=== PATIENT | male | born 1960 | race Caucasian/White ===

== ENCOUNTER 2023-02-03 01:26 | Day surgery (SDC) | payer OTHER, SELFPAY ==
[2023-01-21 14:28] VITALS: BMI 30.4
[2023-02-03 06:13] VITALS: BP 128/82; PULSE 80; RESP 18; TEMP 36; O2SAT 98
[2023-02-03] MEDS: LACTATED RINGERS 1,000 ML 150 ML IV CONT (06:15)
--- NOTE | 2023-02-03 07:04 | WPDANESEPPF ---
Anes - Initial Pre Proc Eval Procedure: Operation Date: 02/03/23 07:30 Proposed Procedures p Screening Colonoscopy - Sam Soto MD Date/Time: 02/03/23 07:04 Surgeon: Sam Soto MD Pre Op Diagnosis: family hx colon ca, neoplasm screening Patient Data Age: 62 Gender: M Height: 1.85 m Weight: 105.7 kg Last Vital Signs Temp 36.0 C L 02/03/23 06:13 Pulse 80 02/03/23 06:13 Resp 18 02/03/23 06:13 BP 128/82 02/03/23 06:13 Pulse Ox 98 02/03/23 06:13 O2 Del Method Room Air 02/03/23 06:13 Allergies Allergy/AdvReac Type Severity Reaction Status Date / Time acetaminophen AdvReac Intermediate Irritable, Verified 02/03/23 06:11 [From Sudafed PE Cold and itching, Cough] shakiness. dextromethorphan AdvReac Intermediate Irritable, Verified 02/03/23 06:11 [From Sudafed PE Cold and itching, Cough] shakiness. guaifenesin AdvReac Intermediate Irritable, Verified 02/03/23 06:11 [From Sudafed PE Cold and itching, Cough] shakiness. phenylephrine AdvReac Intermediate Irritable, Verified 02/03/23 06:11 [From Sudafed PE Cold and itching, Cough] shakiness. Home Medications Medication Instructions Recorded Confirmed Type esomeprazole magnesium 20 mg 20 mg PO DAILY 06/11/19 02/03/23 History capsule,delayed release [id number]-[id number]-vitC 1 cap PO DAILY 06/11/19 02/03/23 History capsule (Glucosamine Complex-MSM capsule) cholecalciferol (vitamin D3) 125 125 mcg PO DAILY 07/05/19 02/03/23 History mcg (5,000 unit) tablet (Vitamin D3) coenzyme Q10 10 mg capsule (Co 10 mg PO ONCE 07/05/19 02/03/23 History Q-10) calcium carbonate 334 mg-magnesium 1 tablet PO DAILY 01/21/23 02/03/23 History oxide 134 mg-zinc oxide 5 mg tablet sodium hyaluronate 20 mg capsule 100 mg PO DAILY 01/21/23 02/03/23 History indapamide 2.5 mg tablet 2.5 mg PO QAM #90 tabs 01/27/23 02/03/23 Rx simvastatin 40 mg tablet 40 mg PO QPM 02/03/23 02/03/23 History Patient hx anesthesia problems: none Family hx anesthesia problems: none Results Review: All pre-operative results and documents have been reviewed as part of the pre-operative evaluation. [facility] Past Medical History Medical History History of esophageal stricture Hypercholesteremia Hyperlipidemia Hypertension Lower esophageal sphincter, relaxation Normal colonoscopy Normal endoscopy Papilloma of larynx Recurrent boils Surgical History Surgical History H/O removal of cyst [place] teeth extracted Family History Family History Father Hypertension Mother Hypertension Social History Social History Smoking status: Never smoker Second hand tobacco smoke exposure: No Alcohol intake: never Substance use: never Substance use type: does not use Current Housing: Decline to Answer Concerned About Future Housing: Decline to Answer Difficulty Paying Gas/Electric Bills: Decline to Answer Difficulty Paying for Meds: Decline to Answer Currently Unemployed: Decline to Answer Education: Decline to Answer Difficulty w/ Childcare or Family Care: Decline to Answer Living arrangements: with family Occupation/Education: occupation Gender identity (if verbalized by the patient): Male Sexual Orientation (if Verbalized by the Patient): Straight or Heterosexual Spiritual care concerns: No Agree to blood products: Yes Anes - Eval Final PreProcedure Day of Procedure 02/03/23 07:04 Patient weight: overweight Heart: regular rate and rhythm Lungs: clear to auscultation Airway: Mallampati scale class II Neurological: alert and oriented Last oral intake: >/= 8 hours ASA classification: II Emergent: no Anesthetic plan: proceed Anesthesia type and monitoring: general G
--- NOTE | 2023-02-03 07:27 | PM.HPGS ---
History of Present Illness History of Present Illness Consent: Risks, benefits, and alternatives have been discussed and questions answered. Patient agrees to proceed with procedure. Chief complaint: family hx colon ca, neoplasm screening Narrative: Mirza Shanks is a 62 year old male Presents for screening colonoscopy. Patient's current weight appetite and bowel movements are normal. Patient denies abdominal pain. He has had no bleeding. Family history is significant his brother had colon cancer, his father had colon polyps. Patient presents today for neoplasia screening. Previous exam 2018 was unremarkable. Review of Systems Review of Systems: Review of systems noncontributory. [facility] Past Medical History Medical History History of esophageal stricture Hypercholesteremia Hyperlipidemia Hypertension Lower esophageal sphincter, relaxation Normal colonoscopy Normal endoscopy Papilloma of larynx Recurrent boils Surgical History Surgical History H/O removal of cyst [place] teeth extracted Family History Family History Father Hypertension Mother Hypertension Social History Social History Smoking status: Never smoker Second hand tobacco smoke exposure: No Alcohol intake: never Substance use: never Substance use type: does not use Current Housing: Decline to Answer Concerned About Future Housing: Decline to Answer Difficulty Paying Gas/Electric Bills: Decline to Answer Difficulty Paying for Meds: Decline to Answer Currently Unemployed: Decline to Answer Education: Decline to Answer Difficulty w/ Childcare or Family Care: Decline to Answer Living arrangements: with family Occupation/Education: occupation Gender identity (if verbalized by the patient): Male Sexual Orientation (if Verbalized by the Patient): Straight or Heterosexual Spiritual care concerns: No Agree to blood products: Yes Meds Home Medications and Allergies Home Medications Medication Instructions Recorded Confirmed Type esomeprazole magnesium 20 mg 20 mg PO DAILY 06/11/19 02/03/23 History capsule,delayed release qfdwjoqjmwa-fnn-gisysecjy-vitC 1 cap PO DAILY 06/11/19 02/03/23 History capsule (Glucosamine Complex-MSM capsule) cholecalciferol (vitamin D3) 125 125 mcg PO DAILY 07/05/19 02/03/23 History mcg (5,000 unit) tablet (Vitamin D3) coenzyme Q10 10 mg capsule (Co 10 mg PO ONCE 07/05/19 02/03/23 History Q-10) calcium carbonate 334 mg-magnesium 1 tablet PO DAILY 01/21/23 02/03/23 History oxide 134 mg-zinc oxide 5 mg tablet sodium hyaluronate 20 mg capsule 100 mg PO DAILY 01/21/23 02/03/23 History indapamide 2.5 mg tablet 2.5 mg PO QAM #90 tabs 01/27/23 02/03/23 Rx simvastatin 40 mg tablet 40 mg PO QPM 02/03/23 02/03/23 History Allergies Allergy/AdvReac Type Severity Reaction Status Date / Time acetaminophen AdvReac Intermediate Irritable, Verified 02/03/23 06:11 [From Sudafed PE Cold and itching, Cough] shakiness. dextromethorphan AdvReac Intermediate Irritable, Verified 02/03/23 06:11 [From Sudafed PE Cold and itching, Cough] shakiness. guaifenesin AdvReac Intermediate Irritable, Verified 02/03/23 06:11 [From Sudafed PE Cold and itching, Cough] shakiness. phenylephrine AdvReac Intermediate Irritable, Verified 02/03/23 06:11 [From Sudafed PE Cold and itching, Cough] shakiness. Vital Signs Vital Signs - 24 hr 02/03/23 06:13 Temperature 96.8 F L Pulse Rate 80 Respiratory Rate 18 Blood Pressure 128/82 Pulse Oximetry 98 Oxygen Delivery Room Air Exam Narrative: Physical exam reveals patient to be alert. Vital signs stable. HEENT exam is unremarkable. Patient is anicteric. Lungs are clear to ausculta
[2023-02-03 07:47] VITALS: BP 117/67; PULSE 71; RESP 15; O2SAT 97
[2023-02-03 07:57] VITALS: BP 121/80; PULSE 69; RESP 24; O2SAT 97
[2023-02-03 08:07] VITALS: BP 124/78; PULSE 66; RESP 18; O2SAT 97
== END 2023-02-03 08:16 | disposition home or self-care (01) ==
PROVIDERS: PCP Family Medicine; Visit Provider Internal Medicine Gastroenterology
PROC: 0DJD8ZZ Inspection of Lower Intestinal Tract, Via Natural or Artificial Opening Endoscopic (ICD-10-PCS; CPT 45378; principal; 2023-02-03 07:30)
DX: Z12.11 Encounter for screening for malignant neoplasm of colon (principal); K64.8 Other hemorrhoids; Z80.0 Family history of malignant neoplasm of digestive organs; Z83.71 Family history of colonic polyps; I10 Essential (primary) hypertension; E78.00 Pure hypercholesterolemia, unspecified
CPT/HCPCS: 45378; J2704; J7120

== ENCOUNTER 2023-11-11 14:28 | Emergency (ER) | payer OTHER, SELFPAY ==
[2023-11-11 14:42] VITALS: BP 152/80; PULSE 84; RESP 18; TEMP 36.6; O2SAT 97
--- NOTE | 2023-11-11 14:45 | ED.URI ---
HPI - URI/Sore Throat General Chief Complaint: Upper Respiratory Infection Stated Complaint: Cough Time Seen by Provider: 11/11/23 14:53 Source: patient and RN notes reviewed Mode of arrival: ambulatory Limitations: no limitations History of Present Illness HPI Narrative: 63-year-old male presents with concern for 2 week history of nasal congestion, drainage, cough. Reports he has taken [id number] medications without relief of cough. Reports cough keeps awake at night MD elicited complaint: cough and nasal congestion Related Data Home Medications Medication Instructions Recorded Confirmed esomeprazole magnesium 20 mg 20 mg PO DAILY 06/11/19 11/11/23 capsule,delayed release xnujvqyafrq-pje-taatjjhmg-vitC 1 cap PO DAILY 06/11/19 11/11/23 capsule (Glucosamine Complex-MSM capsule) cholecalciferol (vitamin D3) 125 125 mcg PO DAILY 07/05/19 11/11/23 mcg (5,000 unit) tablet (Vitamin D3) coenzyme Q10 10 mg capsule (Co 10 mg PO ONCE 07/05/19 11/11/23 Q-10) calcium carbonate 334 mg-magnesium 1 tablet PO DAILY 01/21/23 11/11/23 oxide 134 mg-zinc oxide 5 mg tablet sodium hyaluronate 20 mg capsule 100 mg PO DAILY 01/21/23 11/11/23 simvastatin 40 mg tablet 40 mg PO QPM 02/03/23 11/11/23 Allergies Allergy/AdvReac Type Severity Reaction Status Date / Time phenylephrine AdvReac Intermediate Irritable, Verified 11/11/23 14:35 [From Sudafed PE Cold and itching, Cough] shakiness. pseudoephedrine AdvReac Itching Verified 11/11/23 15:03 [From Sudafed] Review of Systems Review of Systems: CONSTITUTIONAL: Denies malaise, chills, sweats, or fever. EYES: Denies visual changes, redness, or discharge. ENT: Reports rhinorrhea, congestio CARDIOVASCULAR: Denies chest pain, palpitations, or edema. RESPIRATORY: Reports cough. Denies dyspnea. GASTROINTESTINAL: Denies abdominal pain, nausea, vomiting, diarrhea SKIN: Denies rash or itching. MUSCULOSKELETAL: Denies myalgia. NEUROLOGIC: Denies headache. All systems reviewed & are unremarkable except as noted in HPI and below PMFSH Past Medical History Medical History History of esophageal stricture Hypercholesteremia Hyperlipidemia Hypertension Lower esophageal sphincter, relaxation Normal colonoscopy Normal endoscopy Papilloma of larynx Recurrent boils Surgical History Surgical History H/O removal of cyst [place] teeth extracted Family History Family History Father Hypertension Mother Hypertension Social History Social History Smoking status: Never smoker Second hand tobacco smoke exposure: No Alcohol intake: never Substance use: never Substance use type: does not use Current Housing: Decline to Answer Concerned About Future Housing: Decline to Answer Difficulty Paying Gas/Electric Bills: Decline to Answer Difficulty Paying for Meds: Decline to Answer Currently Unemployed: Decline to Answer Education: Decline to Answer Difficulty w/ Childcare or Family Care: Decline to Answer Living arrangements: with family Occupation/Education: occupation Gender identity (if verbalized by the patient): Male Sexual Orientation (if Verbalized by the Patient): Straight or Heterosexual Spiritual care concerns: No Agree to blood products: Yes Comments At time of signature, agree with nursing past medical, surgical, social and family history. There is no relevant family history pertinent to the presenting complaint Exam Narrative: GENERAL: Nontoxic-appearing, well-nourished, and in no acute distress. HEAD: Normocephalic EYES: PERRLA, conjunctivae clear ENT: Nares clear. Mucous membranes moist. TM pearly [place] with dull light reflex bilaterally; no tragal tenderness. Oropharynx not erythematous without les
== END 2023-11-11 15:10 | disposition home or self-care (01) ==
PROVIDERS: Emergency Provider Nurse Practitioner; PCP Family Medicine
DX: J32.9 Chronic sinusitis, unspecified (principal); J40 Bronchitis, not specified as acute or chronic; E78.00 Pure hypercholesterolemia, unspecified; E78.5 Hyperlipidemia, unspecified; I10 Essential (primary) hypertension
CPT/HCPCS: 99213; G0463